=== PATIENT | female | born 1975 | race Two or more races ===

== ENCOUNTER 2019-11-14 09:51 | Outpatient (CLI) | payer OTHER | END 2019-11-14 09:56 | disposition home or self-care (01) | LOC: RX STUDY 09:51 | PROVIDERS: ATTEND Obstetrics & Gynecology Reproductive Endocrinology | DX: N70.11 Chronic salpingitis (principal) ==

== ENCOUNTER 2019-11-14 10:56 | Outpatient (CLI) | payer OTHER | END 2019-11-14 15:00 | disposition home or self-care (01) | LOC: LAB 10:56 | DX: N97.8 Female infertility of other origin (principal) ==

== ENCOUNTER 2021-09-11 13:13 | Outpatient (CLI) | payer OTHER | END 2021-09-11 14:20 | disposition home or self-care (01) | LOC: PRENATAL 13:13 | PROVIDERS: ATTEND Obstetrics & Gynecology Maternal & Fetal Medicine | DX: O99.891 Other specified diseases and conditions complicating pregnancy (principal); O10.019 Pre-existing essential hypertension complicating pregnancy, unspecified trimester; O09.519 Supervision of elderly primigravida, unspecified trimester; Z3A.01 Less than 8 weeks gestation of pregnancy ==